=== PATIENT | female | born 1955 | race Caucasian/White ===

== ENCOUNTER 2017-07-02 06:19 | Emergency (ER) | payer MEDICAID ==
[2017-07-02] MEDS ORDERED: Ondansetron 4 MG/2 ML SDV IVPUSH ONE ×2 (07:28→09:56)
[2017-07-02] MEDS ORDERED: Sodium Chloride 0.9% 1,000 ML IV SCH ×2 (07:30→08:45)
--- NOTE | 2017-07-02 07:35 | EDM.PDOC ---
ED HPI GENERAL MEDICAL PROBLEM - General Chief Complaint: Abdominal Pain Stated Complaint: DIZZINESS/NAUSEA Time Seen by Provider: 07/02/17 07:30 Source of Information: Reports: Patient History Limitations: Reports: No Limitations - History of Present Illness INITIAL COMMENTS - FREE TEXT/NARRATIVE: pt arrived after having an episode at home she passed out and did fall. She had diarrhea at home. She did vomit some but was very nauseated. Onset: Today Duration: Hour(s):, Getting Worse Location: Reports: Abdomen, Other (pt has severe cramping in the abdoman. ) Associated Symptoms: Reports: Nausea/Vomiting, Syncope, Other (pt did have diarrhea last nite. ) Abdomen Pain Score (Numeric/FACES): 6 - Related Data Allergies Allergy/AdvReac Type Severity Reaction Status Date / Time metoclopramide Allergy Vomiting Verified 07/02/17 07:11 Penicillins Allergy Hives Verified 07/02/17 07:10 Sulfa (Sulfonamide Allergy Hives Verified 07/02/17 07:11 Antibiotics) Home Meds: Home Meds Cefdinir 300 mg PO BID 07/02/17 [History] Triamterene/Hydrochlorothiazid [Triamterene-HCTZ 37.5-25 MG] 1 tab PO DAILY [History] Vaiacyclovir 500 mg PO TID 07/02/17 [History] Past Medical History HEENT History: Reports: Impaired Vision Cardiovascular History: Reports: Hypertension Genitourinary History: Reports: Renal Calculus [employer] History: Reports: - Infectious Disease History Infectious Disease History: Reports: Chicken Pox, Mumps, Shingles - Past Surgical History GI Surgical History: Reports: Cholecystectomy Female Surgical History: Reports: Hysterectomy, Other (See Below) Other Female Surgeries/Procedures: lithrotripsy Social & Family History - Tobacco Use Smoking Status *Q: Former Smoker Years of Tobacco use: 15 Packs/Tins Daily: 1 Used Tobacco, but Quit: Yes Month Tobacco Last Used: December Second Hand Smoke Exposure: No - Caffeine Use Caffeine Use: Reports: Soda, Tea - Recreational Drug Use Recreational Drug Use: No ED ROS GENERAL - Review of Systems Review Of Systems: See Below Constitutional: Reports: Chills, Weakness HEENT: Reports: No Symptoms Respiratory: Reports: No Symptoms Cardiovascular: Reports: No Symptoms Endocrine: Reports: No Symptoms GI/Abdominal: Reports: Abdominal Pain, Diarrhea, Nausea, Vomiting : Reports: No Symptoms Musculoskeletal: Reports: No Symptoms Skin: Reports: No Symptoms ED EXAM, GI/ABD - Physical Exam Exam: See Below Text/Narrative:: PT ARRIVED AFTER HAVING A SYNCOPAL EPISODE AT HOME. tHIS WAS VERY BRIEF. sHE IS FEELING VERY WEAK AT THIS TIME. sHE DOES HAVE SHINGLES. Exam Limited By: No Limitations General Appearance: Alert, Mild Distress, Other (PUPILS ARE EQUAL AND REACTIVE. ) Ears: Normal TMs Nose: Normal Inspection Throat/Mouth: Normal Inspection Head: Atraumatic Neck: Normal Inspection Respiratory/Chest: No Respiratory Distress Cardiovascular: Regular Rate, Rhythm GI/Abdominal Exam: Soft, Tender, Other (PT HAS TENDERNESS IN THE RT UPPER ABDOMAN, ) (Female) Exam: Deferred Rectal (Female) Exam: Deferred Back Exam: Normal Inspection Extremities: Normal Inspection Neurological: Alert, Oriented, Normal Cognition Psychiatric: Normal Affect Course - Vital Signs Last Recorded V/S: Last Vital Signs Temp 35.7 C 07/02/17 07:21 Pulse 80 07/02/17 08:39 Resp 16 07/02/17 08:39 BP 125/66 07/02/17 08:39 Pulse Ox 96 07/02/17 08:39 Orthostatic Blood Pressure [ 139/70 Standing] Orthostatic Blood Pressure [ 130/67 Sitting] Orthostatic Blood Pressure [ 129/64 Supine] - Orders/Labs/Meds Orders: Active Orders 24 hr Category Date Time Status EKG Documentation Completion [RC] ASDIRECTED Care 07/02/17 07:21 Active Orthostatic Vital Signs [RC] ASDIRECTED Care 07/02/17 08:27 Active Sodium Chloride 0.9% [Normal Saline] 1,000 ml Med 07/02/17 07:30 Active IV ASDIRECTED Sodium Chloride 0.9% [Normal Saline] 1,000 ml Med 07/02/17 08:45 Active IV ASDIRECTED EKG 12 Lead [EK] Routine Ther 07/02/17 07:21 Ordered Medication Orders Sodium Chloride (Normal Saline) 1,000 mls @ 999 mls/hr IV ASDIRECTED GABI Last Admin: 07/02/17 07:43 Dose: 999 mls/hr Sodium Chloride (Normal Saline) 1,000 mls @ 500 mls/hr IV ASDIRECTED GABI Last Admin: 07/02/17 08:44 Dose: 500 mls/hr Labs: Laboratory Tests 07/02/17 07/02/17 07/02/17 Range/Units 07:27 07:27 07:31 WBC 12.5 H (4.5-11.0) K/uL RBC 5.00 (3.30-5.50) M/uL Hgb 14.6 (12.0-15.0) g/dL Hct 42.4 (36.0-48.0) % MCV 85 (80-98) fL MCH 29 (27-31) pg MCHC 34 (32-36) % Plt Count 208 (150-400) K/uL Neut % (Auto) 87 H (36-66) % Lymph % (Auto) 5 L (24-44) % Mcduffie % (Auto) 7 H (2-6) % Eos % (Auto) 1 L (2-4) % Baso % (Auto) 0 (0-1) % Sodium 139 L (140-148) mmol/L Potassium 3.4 L (3.6-5.2) mmol/L Chloride 101 (100-108) mmol/L Carbon Dioxide 27 (21-32) mmol/L Anion Gap 14.4 H (5.0-14.0) mmol/L BUN 15 (7-18) mg/dL Creatinine 1.1 H (0.6-1.0) mg/dL Est Cr Clr Drug Dosing 46.38 mL/min Estimated GFR (MDRD) 50 L (>60) Glucose 130 H (74-106) mg/dL Calcium 9.1 (8.5-10.1) mg/dL Total Bilirubin 0.6 (0.2-1.0) mg/dL AST 34 (15-37) U/L ALT 44 (12-78) U/L Alkaline Phosphatase 63 (46-116) U/L C-Reactive Protein (0.0-0.3) mg/dL Total Protein 7.6 (6.4-8.2) g/dL Albumin 3.7 (3.4-5.0) g/dL Globulin 3.9 H (2.3-3.5) g/dL Albumin/Globulin Ratio 1.0 L (1.2-2.2) Amylase (25-115) U/L Lipase 156 (73-393) U/L Urine Color Urine Appearance Urine pH (4.5-8.0) Ur Specific Smilax (1.008-1.030) Urine Protein (NEGATIVE) mg/dL Urine Glucose (UA) (NEGATIVE) mg/dL Urine Ketones (NEGATIVE) mg/dL Urine Occult Blood (NEGATIVE) Urine Nitrite (NEGATIVE) Urine Bilirubin (NEGATIVE) Urine Urobilinogen (NORMAL) mg/dL Ur Leukocyte Esterase (NEGATIVE) Urine RBC (0-5) Urine WBC (0-5) Ur Epithelial Cells Amorphous Sediment Urine Bacteria Urine Mucus 07/02/17 07/02/17 07/02/17 Range/Units 07:32 08:23 10:04 WBC (4.5-11.0) K/uL RBC (3.30-5.50) M/uL Hgb (12.0-15.0) g/dL Hct (36.0-48.0) % MCV (80-98) fL MCH (27-31) pg MCHC (32-36) % Plt Count (150-400) K/uL Neut % (Auto) (36-66) % Lymph % (Auto) (24-44) % Mcduffie % (Auto) (2-6) % Eos % (Auto) (2-4) % Baso % (Auto) (0-1) % Sodium (140-148) mmol/L Potassium (3.6-5.2) mmol/L Chloride (100-108) mmol/L Carbon Dioxide (21-32) mmol/L Anion Gap (5.0-14.0) mmol/L BUN (7-18) mg/dL Creatinine (0.6-1.0) mg/dL Est Cr Clr Drug Dosing mL/min Estimated GFR (MDRD) (>60) Glucose (74-106) mg/dL Calcium (8.5-10.1) mg/dL Total Bilirubin (0.2-1.0) mg/dL AST (15-37) U/L ALT (12-78) U/L Alkaline Phosphatase (46-116) U/L C-Reactive Protein 1.91 H (0.0-0.3) mg/dL Total Protein (6.4-8.2) g/dL Albumin (3.4-5.0) g/dL Globulin (2.3-3.5) g/dL Albumin/Globulin Ratio (1.2-2.2) Amylase 84 (25-115) U/L Lipase (73-393) U/L Urine Color Yellow Urine Appearance Slightly cloudy Urine pH 5.0 (4.5-8.0) Ur Specific Smilax 1.015 (1.008-1.030) Urine Protein Negative (NEGATIVE) mg/dL Urine Glucose (UA) Normal (NEGATIVE) mg/dL Urine Ketones Negative (NEGATIVE) mg/dL Urine Occult Blood Negative (NEGATIVE) Urine Nitrite Negative (NEGATIVE) Urine Bilirubin Small (NEGATIVE) Urine Urobilinogen 1 (NORMAL) mg/dL Ur Leukocyte Esterase Small (NEGATIVE) Urine RBC Not seen (0-5) Urine WBC 0-5 (0-5) Ur Epithelial Cells Moderate Amorphous Sediment Rare Urine Bacteria Rare Urine Mucus Moderate Meds: Medications Generic Name Dose Route Start Last Admin Trade Name Freq PRN Reason Stop Dose Admin Sodium Chloride 1,000 mls @ 999 mls/hr 07/02/17 07:30 07/02/17 07:43 Normal Saline IV 999 mls/hr ASDIRECTED GABI Administration Sodium Chloride 1,000 mls @ 500 mls/hr 07/02/17 08:45 07/02/17 08:44 Normal Saline IV 500 mls/hr ASDIRECTED GABI Administration Discontinued Medications Generic Name Dose Route Start Last Admin Trade Name Freq PRN Reason Stop Dose Admin Ondansetron HCl 4 mg 07/02/17 07:28 07/02/17 07:45 Zofran IVPUSH 07/02/17 07:29 4 mg ONETIME ONE Administration Ondansetron HCl 4 mg 07/02/17 09:56 07/02/17 10:03 Zofran IVPUSH 07/02/17 09:57 4 mg ONETIME ONE Administration - Re-Assessments/Exams Free Text/Narrative Re-Assessment/Exam: 07/02/17 08:31 PT HAS BORDERLINE RENAL FUNTION. pT IS GETTING A LITER OF SALINE AT THIS TIME. 07/02/17 10:35 Pt has had a total of 2 liters of fluid. She has had 8 mg of zoforan and her nauisea and abdomanal pain is better. She has orthostatics which are good. Departure - Departure Time of Disposition: 10:36 Disposition: Home, Self-Care 01 Condition: Fair Clinical Impression: Dehydration, Decreased renal function, Shingles - Discharge Information Referrals: Lakisha Brewer, RN [Primary Care Provider] - Forms: ED Department Discharge Care Plan Goals: push fluids, zoforan 4mg q6h prn for nausea, stop zovirax and antibiotic. rtc if further problems. - My Orders Last 24 Hours: My Active Orders 07/02/17 07:21 EKG Documentation Completion [RC] ASDIRECTED EKG 12 Lead [EK] Routine 07/02/17 07:30 Sodium Chloride 0.9% [Normal Saline] 1,000 ml IV ASDIRECTED 07/02/17 08:27 Orthostatic Vital Signs [RC] ASDIRECTED 07/02/17 08:45 Sodium Chloride 0.9% [Normal Saline] 1,000 ml IV ASDIRECTED - Assessment/Plan Last 24 Hours: My Active Orders 07/02/17 07:21 EKG Documentation Completion [RC] ASDIRECTED EKG 12 Lead [EK] Routine 07/02/17 07:30 Sodium Chloride 0.9% [Normal Saline] 1,000 ml IV ASDIRECTED 07/02/17 08:27 Orthostatic Vital Signs [RC] ASDIRECTED 07/02/17 08:45 Sodium Chloride 0.9% [Normal Saline] 1,000 ml IV ASDIRECTED
== END 2017-07-02 11:05 | disposition home or self-care (01) ==
LOC: JP.ED 06:19
DX: E86.0 Dehydration (principal); B02.9 Zoster without complications; R94.4 Abnormal results of kidney function studies; I10 Essential (primary) hypertension; Z88.0 Allergy status to penicillin; Z88.8 Allergy status to other drugs, medicaments and biological substances; Z88.2 Allergy status to sulfonamides; Z79.899 Other long term (current) drug therapy; Z87.891 Personal history of nicotine dependence
CPT/HCPCS: 36415; 80053; 81001; 82150; 83690; 85025; 86140; 93005; 96361; 96374; 96376; 99284; J2405; J7040

== ENCOUNTER 2022-02-26 20:41 | Emergency (ER) | payer BC, MEDICARE ==
[2022-02-26] MEDS ORDERED: Sodium Chloride 0.9% 1,000 ML IV SCH (21:30)
[2022-02-26 22:11] LABS: ESTIMATED GFR 71 mL/min (>60)
[2022-02-26] MEDS ORDERED: Potassium Chloride 20 MEQ Tab.ER PO ONE (23:10)
== END 2022-02-26 23:31 | disposition home or self-care (01) ==
LOC: JP.ED 20:41
DX: E87.6 Hypokalemia (principal); Z88.0 Allergy status to penicillin; Z88.2 Allergy status to sulfonamides; Z87.891 Personal history of nicotine dependence
CPT/HCPCS: 36415; 80053; 81001; 83735; 85025; 96360; 99283; A9270; J7030; 99284